=== PATIENT | female | born 1950 | race Caucasian/White ===

== ENCOUNTER 2016-12-25 15:45 | Day surgery (SDC) | payer MEDICARE, BC ==
[2016-12-24 14:06] VITALS: BMI 25.4
[2016-12-25] VITALS (11 sets, daily range): BP systolic 126–172; BP diastolic 47–71; PULSE 63–82; RESP 9–25; Ht 160 cm; Wt 61.7 kg
[~2016-12-25] VITALS: Ht 160 cm; Wt 61.7 kg
[~2016-12-25 15:45] MED LIST: AMLO-147 PO; BENA40TA54 PO; CINA60TA PO; DIAZ-90 PO; DOCU-159; GABA-526; HYDR-3025 PO; HYDR-3670; HYDR12.53 PO; ICNREG; INSU100V19; OMEP20TA42; ONDA4TAB95; PROPOFOL 200 MG INJ ONE; SEVE800T7; SUCR1TAB; [UNRECOGNIZED DRUG - CODE]
[2016-12-25 17:22] LABS: BASOPHILS % 0.4 % (0.0-2.0); EOSINOPHILS # 0.1 10^3/ul (0.0-0.5); EOSINOPHILS % 0.9 % (0.0-7.0); HEMATOCRIT 30.7 % (37.0-47.0); HEMOGLOBIN 10.1 g/dl (12.0-16.0); LYMPHOCYTES # 0.6 10^3/ul (0.8-2.9); LYMPHOCYTES % 10.2 % (15.0-51.0); MEAN CORPUSCULAR HEMOGLOBIN 29.9 pg (29.0-33.0); MEAN CORPUSCULAR HGB CONC 32.8 g/dl (32.0-37.0); MEAN CORPUSCULAR VOLUME 91.4 fl (82.0-101.0); MEAN PLATELET VOLUME 7.7 fl (7.4-10.4); MONOCYTE # 0.7 10^3/ul (0.3-0.9); MONOCYTES % 11.1 % (0.0-11.0); NEUTROPHIL # 4.9 10^3/ul (1.6-7.5); NEUTROPHILS % 77.4 % (39.0-77.0); PLATELET COUNT 201 10^3/UL (140-440); RED BLOOD COUNT 3.36 10^6/ul (4.20-5.40); RED CELL DISTRIBUTION WIDTH 16.6 % (11.5-14.5); UNCORRECTED WBC 6.4 10^3/ul (4.8-10.8); WHITE BLOOD COUNT 6.4 10^3/ul (4.8-10.8)
[2016-12-25 17:24] LABS: CALCIUM 10.1 mg/dl (8.4-10.2); CONDITION 1; CREATININE 1.58 mg/dl (0.44-1.00); LH ANALYZER COMMENTS 1; POTASSIUM 4.6 mmol/L (3.5-5.1)
[2016-12-25] MEDS ORDERED: METO5TAB58 PO (17:37)
[2016-12-25] MEDS ORDERED: DOCU-144 PO (17:37)
[2016-12-25] MEDS ORDERED: NIFE90TA11 PO (17:55)
[2016-12-25] MEDS ORDERED: VALC450 PO (17:55)
[2016-12-25] MEDS ORDERED: MAGN400C PO (17:55)
[2016-12-25] MEDS ORDERED: PRED5 PO (17:55)
[2016-12-25] MEDS ORDERED: TRAM50TA2 PO (17:55)
[2016-12-25] MEDS ORDERED: GABA100C PO (17:55)
[2016-12-25] MEDS ORDERED: METH500T PO (17:55)
[2016-12-25] MEDS ORDERED: MULT-761 PO (17:55)
[2016-12-25] MEDS ORDERED: TACR1CAP26 PO (17:55)
[2016-12-25] MEDS ORDERED: HYDR-3671 PO (17:55)
[2016-12-25] MEDS ORDERED: PHOS250T2 PO (17:55)
[2016-12-25] MEDS ORDERED: CARV25TA97 PO (17:55)
[2016-12-25] MEDS ORDERED: CLON-379 PO (17:55)
[2016-12-25] MEDS ORDERED: OMEP20CA16 PO (17:55)
[2016-12-25] MEDS ORDERED: LEFL20TA PO (17:55)
[2016-12-25 19:28] LABS: INR 1.03; PROTIME 13.5 Sec (12.2-14.2); PT RATIO 1.1
[2016-12-25] MEDS ORDERED: DIPHENHYDRAMINE 50 MG INJ IV PRN (19:30)
[2016-12-25] MEDS ORDERED: MEPERIDINE 25 MG INJ IV PRN (19:30)
[2016-12-25] MEDS ORDERED: ONDANSETRON 4 MG INJ IV PRN (19:30)
[2016-12-25] MEDS ORDERED: EPHEDrine SULFATE 50 MG/5 ML SYG IV PRN (19:30)
[2016-12-25] MEDS ORDERED: hydrALAzine 20 MG INJ IV PRN (19:30)
[2016-12-25] MEDS ORDERED: HYDROmorphONE (0.2 MG/ML) 10ML SYG IV PRN ×3 (19:30)
[2016-12-25] MEDS ORDERED: MIDAZOLAM 1 MG/ML 2 ML INJ ONE (19:31)
--- NOTE | 2016-12-25 19:33 | HPN ---
Date/Time of Note Date/Time of Note DATE: 12/25/16 TIME: 19:32 Interval H&P Admission Note Pt. seen H&P reviewed: Systems changes noted below ANGELLA EDGAR DPM Dec 25, 2016 19:33
[2016-12-25] MEDS ORDERED: POLYMYXIN/BACITRACIN 1L IRRIG ONE (19:53)
[2016-12-25] MEDS ORDERED: BUPIVACAINE 0.5% (SDV) 30 ML INJ ONE (19:57)
[2016-12-25] MEDS ORDERED: CEFAZOLIN 1 GM INJ ONE (20:00)
[2016-12-25] MEDS ORDERED: HYDROCODONE/APAP (5/325) TAB PO PRN (21:30)
--- NOTE | 2016-12-27 05:19 | OPR ---
DATE OF OPERATION: 12/25/2016 SURGEON: Danny Lozaad DPM ANESTHESIOLOGIST: Dr. Kowalski ANESTHESIA: Local with IV sedation. PREOPERATIVE DIAGNOSES: 1. Gangrene, right hallux. 2. Gangrene, right dorsal lateral foot with osteomyelitis, right fifth metatarsal. POSTOPERATIVE DIAGNOSES: 1. Gangrene, right hallux. 2. Gangrene, right dorsal lateral foot with osteomyelitis, right fifth metatarsal. OPERATION PERFORMED: 1. Amputation, right hallux. 2. Debridement of necrotic tissue and bone, right fifth metatarsal. DESCRIPTION OF PROCEDURE: The patient was brought into the operating room, placed on the table in a secure supine position. Cardiac monitoring, IV sedation, and an ankle pneumatic tourniquet were ut ilized for this case. Preoperatively, a total of 20 mL of 0.5% Marcaine plain were infiltrated into the right foot in the form of a Tarango block, and a mini Tarango block. Upon achieving anesthesia, the right foot and leg were prepped and draped in the usual sterile manner. There was no tourniquet uti lized for this case. Procedure #1 was then performed, amputation of right hallux. A circumferentia l incision was placed at the interphalangeal joint of the right hallux. The necrotic tissue was rem delio. The hallux was disarticulated at the interphalangeal joint level. An additional 3 mm section of bone was removed from the proximal phalanx to allow for closure of skin. The skin was primarily closed with 4-0 Vicryl simple interrupted sutures. The skin edges were reapproximated with 4-0 nyl on simple stitches. Copious lavage with sterile saline mixed with bacitracin solution was utilized prior to closure. We now turn our attention to the lateral aspect of the right foot for procedure # 2, debridement of necrotic tissue and partial resection of the right 5th metatarsal. Utilizing the #15 scalpel, the necrotic tissue from the right 5th metatarsal as well as the plantar surface which was also necrotic was debrided. The wound measured to be approximately 5 cm in length with width of about 3.5 cm. The head of the fifth metatarsal was soft and brittle, suggestive of osteomyelitis. The fifth metatarsal head was resected and sent for pathology. The 4th digit was also debrided, th e lateral aspect, due to necrosis. The wound was dressed with Xeroform gauze, moist 4 x 4 gauze wit h saline, and bacitracin solution, 4 x 4 gauze, 4-inch Kerlix roll, and a 4-inch Tim bandage. The p atient tolerated the above procedure well and left the OR with vital signs stable and satisfactory. Good perfusion was noted during the operative procedure. The patient will follow up 1 week postop. Dictated By: DANNY LARA/JOSIAH Conf#: [id number] DID#: [id number]
== END 2016-12-25 21:48 | disposition home or self-care (01) ==
LOC: SDS 15:45
PROVIDERS: ATTEND Podiatrist Primary Podiatric Medicine
DX: M86.171 Other acute osteomyelitis, right ankle and foot (principal); M86.671 Other chronic osteomyelitis, right ankle and foot; I96 Gangrene, not elsewhere classified; I73.9 Peripheral vascular disease, unspecified; I25.10 Atherosclerotic heart disease of native coronary artery without angina pectoris; E11.9 Type 2 diabetes mellitus without complications; I12.0 Hypertensive chronic kidney disease with stage 5 chronic kidney disease or end stage renal disease; N18.6 End stage renal disease; Z99.2 Dependence on renal dialysis
CPT/HCPCS: 28825; 80048; 82962; 85025; 85610; 85730; 88304; 88311; J0360; J0690; J1170; J2250; J2405; J3010; L3260